=== PATIENT | female | born 1935 | race Caucasian/White ===

== ENCOUNTER 2019-05-09 19:02 | Emergency (ER) | payer MEDICARE, BC ==
[~2019-05-09] VITALS: Ht 165.1 cm; Wt 63.0 kg
[2019-05-09 19:10] VITALS: BP 137/38
--- NOTE | 2019-05-09 19:45 | NUR ---
son and [id number]-[id number]-pny at bedside. pt is comfortable at this time and asking when she can go back to [facility]. she has confusion/dementia at baseline per family
[2019-05-09] MEDS ORDERED: TETanus/Pertussis (Acell)/Diphther VAC/PF (Tdap-Adult) 0.5ml syringe IM ONE (20:40)
[2019-05-09] MEDS ORDERED: magnesium oxide 400mg tablet PO ONE (21:00)
== END 2019-05-09 21:26 | disposition home or self-care (01) ==
LOC: ER 19:03
DX: S51.812A Laceration without foreign body of left forearm, initial encounter (principal); I45.81 Long QT syndrome; F03.90 Unspecified dementia, unspecified severity, without behavioral disturbance, psychotic disturbance, mood disturbance, and anxiety; I48.91 Unspecified atrial fibrillation; I10 Essential (primary) hypertension; Z90.710 Acquired absence of both cervix and uterus; Z90.49 Acquired absence of other specified parts of digestive tract; W18.39XA Other fall on same level, initial encounter; Y93.89 Activity, other specified; Y92.89 Other specified places as the place of occurrence of the external cause; Y99.8 Other external cause status
CPT/HCPCS: 12002; 71045; 90471; 93005; 99283; 99284

== ENCOUNTER 2019-09-01 14:34 | Inpatient (IN) | payer MEDICARE, BC ==
[~2019-09-01] VITALS: Ht 160 cm; Wt 63.6 kg
--- NOTE | 2019-09-01 14:58 | NUR ---
BROUGHT IN FOR REPORT OF N/V AND IN TREAGE REPORT OF HR IN THE 30'S WAS FOUND BROUGHT BACK AND PALCED IN ROOM AND PACING PADS WERE PLACED ON PT BUT NOT TURNED ON AT THIS TIME
[2019-09-01 15:07] LABS: BASOPHILS % (AUTO) 0.2 % (0-1); EOSINOPHILS % (AUTO) 0.1 % (0-6); HEMATOCRIT 39.4 % (35.0-45.0); HEMOGLOBIN 13.4 g/dl (12.0-16.0); LYMPHOCYTES # (AUTO) 0.5 X10'3 (1.1-4.8); LYMPHOCYTES % (AUTO) 4.6 % (21-51); MEAN CORPUSCULAR HEMOGLOBIN 30.9 PG (27.0-31.0); MEAN CORPUSCULAR HGB CONC 34.1 g/dL (33.0-36.5); MEAN CORPUSCULAR VOLUME 90.5 FL (78-98); MEAN PLATELET VOLUME 6.4 FL (7.4-10.4); MONOCYTES # (AUTO) 0.5 X10'3 (0-0.9); MONOCYTES % (AUTO) 4.4 % (2-12); NEUTROPHILS # (AUTO) 10.7 X10'3 (1.8-7.7); NEUTROPHILS % (AUTO) 90.7 % (42-75); PLATELET COUNT 242 X10'3 (140-440); RED BLOOD COUNT 4.35 X10'6 (4.20-5.60); RED CELL DISTRIBUTION WIDTH 13.6 % (11.5-14.5); WHITE BLOOD COUNT 11.8 X10'3 (4.5-11.0)
[2019-09-01 15:39] LABS: CLARITY,URINE CLEAR (Clear); COLOR,URINE STRAW (Yellow); GLUCOSE, URINE NEGATIVE (Neg); KETONES,URINE NEGATIVE (Neg); LEUKOCYTE ESTERASE ,URINE NEGATIVE (Neg); NITRITES, URINE NEGATIVE (Neg); OCCULT BLOOD,URINE TRACE-INTACT (Neg); PROTEIN,URINE NEGATIVE (Neg); UROBILINOGEN,URINE 0.2 E.U/dL (0.2-1.0)
[2019-09-01 15:39] LABS: ALANINE AMINOTRANSFERASE 16 U/L (12-78); ALBUMIN 4.1 G/DL (3.4-5.0); ALBUMIN/GLOBULIN RATIO 1.1 (1.1-1.5); ALKALINE PHOSPHATASE 61 IU/L (46-116); ANION GAP 11 (8-16); ASPARTATE AMINO TRANSFERASE 19 U/L (10-37); BILIRUBIN,TOTAL 0.5 MG/DL (0.1-1.0); BLOOD UREA NITROGEN 16 MG/DL (7-18); BUN/CREATININE RATIO 21.6 (6.6-38.0); CHLORIDE 97 MMOL/L (99-107); CREATININE 0.74 MG/DL (0.40-0.90); GLUCOSE 176 MG/DL (70-104); MAGNESIUM 1.8 MG/DL (1.5-2.4); SODIUM 134 MMOL/L (135-145); TOTAL CARBON DIOXIDE 26.4 MMOL/L (24-32); TOTAL PROTEIN 7.8 G/DL (6.4-8.2); eGFR 75 ML/MIN
[2019-09-01 15:42] LABS: UA COLLECTION TYPE STRAIGHT CATH
[2019-09-01 15:43] LABS: POTASSIUM 2.8 MMOL/L (3.5-5.1)
[2019-09-01 15:45] LABS: BACTERIA,URINE NONE SEEN /HPF (Neg); HYALINE CASTS 0-3 /LPF (NEGATIVE); MUCUS STRANDS NONE SEEN /LPF (Neg); RBC,URINE 0-2 /HPF (0-2); SQUAMOUS EPITHELIAL CELL,UR FEW /LPF (FEW); WBC,URINE 0-4 /HPF (0-4)
[2019-09-01] MEDS ORDERED: potassium Cl 10 mEq/100mL bag IV ONE ×2 (15:50→16:20)
[2019-09-01] MEDS ORDERED: normal saline 1000ML IV soln IVB ONE (15:55)
[2019-09-01] MEDS ORDERED: potassium Cl 20 mEq SR tablet PO ONE (16:20)
[2019-09-01] MEDS ORDERED: enoxaparin 100mg/ml syringe SUBCUT ONE (16:20)
[2019-09-01] MEDS ORDERED: normal saline 1000ml 1,000 ML IV SCH (16:23)
[2019-09-01] MEDS ORDERED: potassium CL 10mEq/100ml bag 100 ML IV PRN ×2 (16:25)
[2019-09-01] MEDS ORDERED: mag hydrox/Alum hydrox/simeth 30ml oral suspension PO PRN (16:25)
[2019-09-01] MEDS ORDERED: magnesium hydroxide 30ml (MOM) UD suspension PO PRN ×2 (16:25→21:05)
[2019-09-01] MEDS ORDERED: ondansetron/PF 4mg/2ml inj IV PRN (16:25)
[2019-09-01] MEDS ORDERED: acetaminophen 325mg tablet PO PRN ×2 (16:25)
[2019-09-01] MEDS ORDERED: magnesium Cl slow-release 64mg tablet PO PRN (16:25)
[2019-09-01] MEDS ORDERED: magnesium 2GM in 50ml NS 50 ML IV PRN (16:25)
[2019-09-01] MEDS ORDERED: diphenhydrAMINE 50 mg/ml inj IV PRN (16:25)
[2019-09-01] MEDS ORDERED: magnesium 4gm in 100ml NS 100 ML IV PRN (16:25)
[2019-09-01] MEDS ORDERED: metoclopramide 5 mg/ml inj IV PRN (16:25)
[2019-09-01] MEDS ORDERED: HYDROcodone/acetaminophen 5mg/325mg tablet PO PRN (16:25)
[2019-09-01] MEDS ORDERED: diphenhydrAMINE 25mg capsule PO PRN (16:25)
[2019-09-01] MEDS ORDERED: potassium Cl 20 mEq SR tablet PO PRN ×2 (16:25)
[2019-09-01] MEDS ORDERED: morphine 2 MG/ML inj. syringe IV PRN ×2 (16:25)
[2019-09-01] MEDS ORDERED: HYDROcodone/acetaminophen 10/325mg tab PO PRN (16:25)
[2019-09-01] MEDS: K and/or MAG REPLACEMENT MC SCH (16:25)
[2019-09-01 17:10] LABS: HEMOGLOBIN A1C 5.5 % (4.5-6.2)
--- NOTE | 2019-09-01 17:30 | NUR ---
Patient in room U 3026. I have received report from Augusto MENDOZA and had the opportunity to ask questions and assume patient care. Awaiting patient arrival to U 3026B.
--- NOTE | 2019-09-01 17:55 | NUR ---
Patient arrived to U 3026B via gurney and accompanied to ED RN. Patient transferred to hospital bed. Telemetry monitoring initiated. Patient oriented to room and to call light. Patient vital signs: T 97.4, HR 64, RR: 20, 02 92% on room air, BP 108/45. Pain 0/10. All immediate needs met at this time.
--- NOTE | 2019-09-01 18:30 | NUR ---
Called Dr. Canela to report 3 hour Troponin results - 10.5
--- NOTE | 2019-09-01 18:32 | NUR ---
Patient in room PCU 3026. I have received report from Juliana RN and Kathleen RN and had the opportunity to ask questions and assume patient care. Checked on patient, she is resting with her granddaughter at bedside. Will continue to monitor closely.
[2019-09-01 19:01] VITALS: BP 108/45
[2019-09-01] MEDS ORDERED: HYDR25TA4 PO (19:02)
[2019-09-01] MEDS ORDERED: ASPI81TA47 PO (19:02)
[2019-09-01] MEDS ORDERED: NA P133E RC (19:02)
[2019-09-01] MEDS ORDERED: FLEC100T3 PO (19:02)
[2019-09-01] MEDS ORDERED: LORA-268 PO (19:02)
[2019-09-01] MEDS ORDERED: ACET-75 PO (19:02)
[2019-09-01] MEDS ORDERED: FURO20TA4 PO (19:02)
[2019-09-01] MEDS ORDERED: MAGN400O6 PO (19:02)
[2019-09-01] MEDS ORDERED: DONE10TA44 PO (19:02)
[2019-09-01] MEDS ORDERED: QUET25TA34 PO ×2 (19:02)
[2019-09-01] MEDS ORDERED: LOSA50TA64 PO (19:02)
[2019-09-01] MEDS ORDERED: DILT120C91 PO (19:02)
[2019-09-01] MEDS ORDERED: SERT100T10 PO (19:02)
[2019-09-01] MEDS ORDERED: MONT10TA24 PO (19:02)
[2019-09-01] MEDS ORDERED: CIPR250T4 PO (19:02)
[2019-09-01] MEDS ORDERED: BISA10SU60 RC (19:02)
[2019-09-01] MEDS ORDERED: CETI10CA PO (19:02)
[2019-09-01] MEDS ORDERED: enoxaparin 100mg/ml syringe SUBCUT SCH (20:00)
[2019-09-01] MEDS: temazepam 15mg capsule PO PRN (20:24)
[2019-09-01] MEDS ORDERED: non-formulary drug (Na Phos,M-B/Na Phos,Di-Ba (Enema) 1 ENEMAS) RC PRN (21:05)
[2019-09-01] MEDS ORDERED: LORazepam 0.5 MG tablet PO PRN (21:05)
[2019-09-01] MEDS ORDERED: bisacodyl 10mg suppository rectal RC PRN (21:05)
[2019-09-01] MEDS ORDERED: non-formulary drug (Acetaminophen 1 TAB) PO PRN (21:10)
--- NOTE | 2019-09-01 21:30 | NUR ---
Called Dr. Canela to report 6 hour troponin - 12.02
[2019-09-01 22:00] VITALS: BP 100/44
[2019-09-02 02:00] VITALS: BP 103/49
[2019-09-02 03:15] LABS: BASOPHILS % (AUTO) 0.3 % (0-1); EOSINOPHILS # (AUTO) 0.1 X10'3 (0-0.9); EOSINOPHILS % (AUTO) 0.7 % (0-6); HEMATOCRIT 36.7 % (35.0-45.0); HEMOGLOBIN 12.5 g/dl (12.0-16.0); LYMPHOCYTES # (AUTO) 1.5 X10'3 (1.1-4.8); LYMPHOCYTES % (AUTO) 18.5 % (21-51); MEAN CORPUSCULAR HEMOGLOBIN 30.9 PG (27.0-31.0); MEAN PLATELET VOLUME 6.8 FL (7.4-10.4); MONOCYTES # (AUTO) 0.7 X10'3 (0-0.9); MONOCYTES % (AUTO) 9.1 % (2-12); NEUTROPHILS # (AUTO) 5.9 X10'3 (1.8-7.7); NEUTROPHILS % (AUTO) 71.4 % (42-75); PLATELET COUNT 210 X10'3 (140-440); RED BLOOD COUNT 4.03 X10'6 (4.20-5.60); RED CELL DISTRIBUTION WIDTH 13.7 % (11.5-14.5); WHITE BLOOD COUNT 8.2 X10'3 (4.5-11.0)
[2019-09-02 03:25] LABS: ALANINE AMINOTRANSFERASE 16 U/L (12-78); ALBUMIN 3.3 G/DL (3.4-5.0); ALBUMIN/GLOBULIN RATIO 1.1 (1.1-1.5); ALKALINE PHOSPHATASE 50 IU/L (46-116); ANION GAP 10 (8-16); ASPARTATE AMINO TRANSFERASE 34 U/L (10-37); BILIRUBIN,TOTAL 0.6 MG/DL (0.1-1.0); BLOOD UREA NITROGEN 13 MG/DL (7-18); BUN/CREATININE RATIO 21.3 (6.6-38.0); CALCIUM 8.4 MG/DL (8.5-10.1); CHLORIDE 102 MMOL/L (99-107); CREATININE 0.61 MG/DL (0.40-0.90); GLUCOSE 87 MG/DL (70-104); POTASSIUM 3.6 MMOL/L (3.5-5.1); SODIUM 138 MMOL/L (135-145); TOTAL CARBON DIOXIDE 26.2 MMOL/L (24-32); TOTAL PROTEIN 6.4 G/DL (6.4-8.2); eGFR > 90 ML/MIN
[2019-09-02 03:28] LABS: CHOL/HDL RATIO 3.1 (0.00-4.99); CHOLESTEROL 153 MG/DL (0-200); HDL CHOLESTEROL 50 MG/DL (35-60); LDL CHOLESTEROL 96 MG/DL (50-100); MAGNESIUM 1.7 MG/DL (1.5-2.4); PHOSPHORUS 2.6 MG/DL (2.3-4.5); TRIGLYCERIDES 65 MG/DL (20-135)
--- NOTE | 2019-09-02 06:25 | NUR ---
Problems reprioritized. Patient report given, questions answered & plan of care reviewed with aLine MENDOZA.
[2019-09-02 06:30] VITALS: BP_SYST 89; BP_SYST 95; BP_DIAS 32; BP_DIAS 37
--- NOTE | 2019-09-02 06:32 | NUR ---
Patient in room PCU 3026. I have received report from KELLY Delgadillo and had the opportunity to ask questions and assume patient care.
[2019-09-02] MEDS: metoprolol succinate 25mg (24-HOUR) SR. Tablet PO SCH (08:00)
[2019-09-02] MEDS: furosemide 20MG tablet PO SCH (08:00)
[2019-09-02] MEDS: losartan 50mg tablet PO SCH (08:00)
[2019-09-02] MEDS ORDERED: diltiazem CD 120mg capsule (once-daily) PO SCH (08:00)
[2019-09-02] MEDS ORDERED: HYDROchlorothiazide 25mg tablet PO SCH (08:00)
[2019-09-02] MEDS: K and/or MAG REPLACEMENT MC SCH (08:00)
[2019-09-02] MEDS: donepezil 5mg tablet PO SCH (08:29)
[2019-09-02] MEDS: QUEtiapine 25mg tablet PO SCH (08:29)
[2019-09-02] MEDS: sertraline 50mg tablet PO SCH (08:29)
[2019-09-02] MEDS: montelukast 10mg tablet PO SCH (08:29)
[2019-09-02] MEDS: enoxaparin 60mg/0.6ml syringe SUBCUT SCH ×2 (08:30→21:47)
[2019-09-02] MEDS: aspirin 81mg tablet.DR PO SCH (08:30)
[2019-09-02] MEDS: cetirizine 10mg tablet PO SCH (08:30)
[2019-09-02] MEDS: flecainide 50mg tablet PO SCH ×2 (08:30→21:46)
[2019-09-02 11:00] VITALS: BP 96/43
--- NOTE | 2019-09-02 14:15 | NUR ---
Pt becoming agitated D/T medical biller coder. Pt has been in sinus rhythm, Dr Hurt paged to request DC of monitor. Response pending, will continue to monitor. Sitter remains at bedside.
[2019-09-02 15:46] VITALS: BP 109/52
--- NOTE | 2019-09-02 18:15 | NUR ---
Patient in room PCU 3026. I have received report from Laine MENDOZA and had the opportunity to ask questions and assume patient care. Patient is sleeping with sitter at bedside. Will continue to monitor.
--- NOTE | 2019-09-02 18:24 | NUR ---
Problems reprioritized. Patient report given, questions answered & plan of care reviewed with KELLY Delgadillo.
[2019-09-02 19:00] VITALS: BP 127/64
[2019-09-02] MEDS ORDERED: QUEtiapine 25mg tablet PO SCH (21:00)
[2019-09-02] MEDS: temazepam 15mg capsule PO PRN (21:46)
[2019-09-02 23:00] VITALS: BP 107/45
[2019-09-03 03:00] VITALS: BP 118/56
[2019-09-03 05:29] LABS: BASOPHILS % (AUTO) 0.3 % (0-1); EOSINOPHILS # (AUTO) 0.1 X10'3 (0-0.9); HEMATOCRIT 37.7 % (35.0-45.0); HEMOGLOBIN 13.1 g/dl (12.0-16.0); LYMPHOCYTES # (AUTO) 1.1 X10'3 (1.1-4.8); MEAN CORPUSCULAR HEMOGLOBIN 31.3 PG (27.0-31.0); MEAN CORPUSCULAR HGB CONC 34.7 g/dL (33.0-36.5); MEAN CORPUSCULAR VOLUME 90.1 FL (78-98); MEAN PLATELET VOLUME 6.8 FL (7.4-10.4); MONOCYTES # (AUTO) 0.8 X10'3 (0-0.9); MONOCYTES % (AUTO) 8.9 % (2-12); NEUTROPHILS # (AUTO) 6.7 X10'3 (1.8-7.7); NEUTROPHILS % (AUTO) 76.8 % (42-75); PLATELET COUNT 204 X10'3 (140-440); RED BLOOD COUNT 4.18 X10'6 (4.20-5.60); RED CELL DISTRIBUTION WIDTH 13.6 % (11.5-14.5); WHITE BLOOD COUNT 8.8 X10'3 (4.5-11.0)
--- NOTE | 2019-09-03 06:12 | NUR ---
Problems reprioritized. Patient report given, questions answered & plan of care reviewed with Doris MENDOZA.
[2019-09-03 06:21] LABS: ALANINE AMINOTRANSFERASE 13 U/L (12-78); ALBUMIN 3.2 G/DL (3.4-5.0); ALKALINE PHOSPHATASE 50 IU/L (46-116); ANION GAP 11 (8-16); ASPARTATE AMINO TRANSFERASE 28 U/L (10-37); BILIRUBIN,TOTAL 0.5 MG/DL (0.1-1.0); BLOOD UREA NITROGEN 17 MG/DL (7-18); BUN/CREATININE RATIO 26.6 (6.6-38.0); CALCIUM 8.3 MG/DL (8.5-10.1); CHLORIDE 102 MMOL/L (99-107); CREATININE 0.64 MG/DL (0.40-0.90); GLUCOSE 98 MG/DL (70-104); MAGNESIUM 1.6 MG/DL (1.5-2.4); PHOSPHORUS 2.8 MG/DL (2.3-4.5); POTASSIUM 3.7 MMOL/L (3.5-5.1); SODIUM 134 MMOL/L (135-145); TOTAL CARBON DIOXIDE 21.3 MMOL/L (24-32); TOTAL PROTEIN 6.5 G/DL (6.4-8.2); eGFR 89 ML/MIN
[2019-09-03 06:47] VITALS: BP 132/67
--- NOTE | 2019-09-03 06:56 | NUR ---
Patient in room PCU 3026. I have received report from KELLY Delgadillo and had the opportunity to ask questions and assume patient care. Patient currently resting in bed, bed locked and low, call light in reach, no acute distress but confused about where she is and asking where her clothes are. Patient concerns addressed and patient calmed. Will continue to monitor.
[2019-09-03] MEDS: donepezil 5mg tablet PO SCH (07:48)
[2019-09-03] MEDS: montelukast 10mg tablet PO SCH (07:48)
[2019-09-03] MEDS: losartan 50mg tablet PO SCH (07:48)
[2019-09-03] MEDS: sertraline 50mg tablet PO SCH (07:48)
[2019-09-03] MEDS: QUEtiapine 25mg tablet PO SCH (07:48)
[2019-09-03] MEDS: aspirin 81mg tablet.DR PO SCH (07:48)
[2019-09-03] MEDS: cetirizine 10mg tablet PO SCH (07:49)
[2019-09-03] MEDS: flecainide 50mg tablet PO SCH (07:49)
[2019-09-03] MEDS: enoxaparin 60mg/0.6ml syringe SUBCUT SCH (07:49)
[2019-09-03] MEDS: furosemide 20MG tablet PO SCH (07:49)
[2019-09-03] MEDS: metoprolol succinate 25mg (24-HOUR) SR. Tablet PO SCH (07:49)
[2019-09-03] MEDS: K and/or MAG REPLACEMENT MC SCH (08:00)
[2019-09-03] MEDS ORDERED: METO-395 PO (09:23)
[2019-09-03 11:01] VITALS: BP 122/59
--- NOTE | 2019-09-03 12:19 | NUR ---
Received orders for patient discharge back to the [facility]. Patient's granddaughter went to get clothing and a vehicle to transport patient. IV removed, catheter tip intact, hemostasis acheived, wristbands removed. Patient [facility], transported to lobby by [facility], stable at time of discharge.
== END 2019-09-03 12:15 | disposition home health service (06) | DRG 281 ==
LOC: ER 14:35 → ED HOLD 16:56 → PCU 3S 17:26
PROVIDERS: ADMIT Family Medicine; ATTEND Family Medicine
DX: I21.4 Non-ST elevation (NSTEMI) myocardial infarction (principal); F03.91 Unspecified dementia, unspecified severity, with behavioral disturbance; E87.6 Hypokalemia; F32.9 Major depressive disorder, single episode, unspecified; F41.9 Anxiety disorder, unspecified; I11.0 Hypertensive heart disease with heart failure; I48.0 Paroxysmal atrial fibrillation; I50.9 Heart failure, unspecified; Z60.2 Problems related to living alone; Z66 Do not resuscitate; Z87.891 Personal history of nicotine dependence; Z88.8 Allergy status to other drugs, medicaments and biological substances; Z79.899 Other long term (current) drug therapy; Z90.710 Acquired absence of both cervix and uterus; Z91.81 History of falling; Z79.82 Long term (current) use of aspirin; Z90.49 Acquired absence of other specified parts of digestive tract
CPT/HCPCS: 36415; 71045; 80053; 80061; 81001; 83036; 83735; 83880; 84100; 84484; 85025; 87081; 93005; 93306; 96365; 96375; 99285; G0378; J1650; J3480; J7030

== ENCOUNTER 2019-09-04 14:13 | Emergency (ER) | payer MEDICARE, BC ==
[~2019-09-04] VITALS: Ht 157.5 cm; Wt 61.4 kg
[~2019-09-04 14:13] MED LIST: ACET-75 PO; ASPI81TA47 PO; BISA10SU60 RC; CETI10CA PO; DONE10TA44 PO; FLEC100T3 PO; HYDR25TA4 PO; LORA-268 PO; LOSA50TA64 PO; MAGN400O6 PO; METO-395 PO; MONT10TA24 PO; NA P133E RC; QUET25TA34 PO; SERT100T10 PO
[2019-09-04] MEDS ORDERED: normal saline 1000ML IV soln IVB ONE (14:50)
[2019-09-04 15:10] LABS: BASOPHILS % (AUTO) 0.6 % (0-1); EOSINOPHILS # (AUTO) 0.2 X10'3 (0-0.9); EOSINOPHILS % (AUTO) 2.6 % (0-6); HEMATOCRIT 34.2 % (35.0-45.0); HEMOGLOBIN 11.8 g/dl (12.0-16.0); LYMPHOCYTES # (AUTO) 1.6 X10'3 (1.1-4.8); LYMPHOCYTES % (AUTO) 24.4 % (21-51); MEAN CORPUSCULAR HEMOGLOBIN 31.3 PG (27.0-31.0); MEAN CORPUSCULAR HGB CONC 34.5 g/dL (33.0-36.5); MEAN CORPUSCULAR VOLUME 90.6 FL (78-98); MEAN PLATELET VOLUME 6.7 FL (7.4-10.4); MONOCYTES # (AUTO) 0.8 X10'3 (0-0.9); MONOCYTES % (AUTO) 11.8 % (2-12); NEUTROPHILS # (AUTO) 3.9 X10'3 (1.8-7.7); NEUTROPHILS % (AUTO) 60.6 % (42-75); PLATELET COUNT 213 X10'3 (140-440); RED BLOOD COUNT 3.77 X10'6 (4.20-5.60); RED CELL DISTRIBUTION WIDTH 13.8 % (11.5-14.5); WHITE BLOOD COUNT 6.4 X10'3 (4.5-11.0)
[2019-09-04 15:24] LABS: PARTIAL THROMBOPLASTIN TIME 26 SECONDS (22-32)
[2019-09-04 15:26] LABS: ALANINE AMINOTRANSFERASE 19 U/L (12-78); ALBUMIN 3.2 G/DL (3.4-5.0); ALKALINE PHOSPHATASE 50 IU/L (46-116); ANION GAP 4 (8-16); ASPARTATE AMINO TRANSFERASE 21 U/L (10-37); BILIRUBIN,TOTAL 0.3 MG/DL (0.1-1.0); BLOOD UREA NITROGEN 16 MG/DL (7-18); BUN/CREATININE RATIO 24.6 (6.6-38.0); CALCIUM 8.5 MG/DL (8.5-10.1); CHLORIDE 100 MMOL/L (99-107); CREATININE 0.65 MG/DL (0.40-0.90); GLUCOSE 110 MG/DL (70-104); POTASSIUM 3.6 MMOL/L (3.5-5.1); SODIUM 133 MMOL/L (135-145); TOTAL CARBON DIOXIDE 28.7 MMOL/L (24-32); TOTAL PROTEIN 6.4 G/DL (6.4-8.2); eGFR 87 ML/MIN
[2019-09-04 15:34] LABS: MAGNESIUM 1.7 MG/DL (1.5-2.4)
[2019-09-04 17:06] VITALS: BP 110/65
== END 2019-09-04 17:12 | disposition home or self-care (01) ==
LOC: ER 14:13
DX: I95.9 Hypotension, unspecified (principal); I11.0 Hypertensive heart disease with heart failure; I50.9 Heart failure, unspecified; I48.91 Unspecified atrial fibrillation; F03.90 Unspecified dementia, unspecified severity, without behavioral disturbance, psychotic disturbance, mood disturbance, and anxiety; Z90.49 Acquired absence of other specified parts of digestive tract; Z90.710 Acquired absence of both cervix and uterus; Z60.2 Problems related to living alone; Z88.8 Allergy status to other drugs, medicaments and biological substances; Z79.82 Long term (current) use of aspirin; Z79.899 Other long term (current) drug therapy
CPT/HCPCS: 36415; 71045; 80053; 83735; 83880; 84484; 85025; 85610; 85730; 93005; 99284; J7040

== ENCOUNTER 2019-09-22 08:11 | Emergency (ER) | payer MEDICARE, BC ==
[~2019-09-22] VITALS: Ht 160 cm; Wt 59.1 kg
[2019-09-22] MEDS ORDERED: aspirin 81mg tab.chew PO ONE (08:20)
[2019-09-22] MEDS ORDERED: furosemide 40mg/4ml inj IV ONE (08:20)
[2019-09-22 08:55] LABS: GLUCOSE 155 MG/DL (70-104); SODIUM 127 MMOL/L (135-145)
[2019-09-22 08:56] LABS: ALANINE AMINOTRANSFERASE 21 U/L (12-78); ALBUMIN 3.5 G/DL (3.4-5.0); ALBUMIN/GLOBULIN RATIO 1.2 (1.1-1.5); ALKALINE PHOSPHATASE 59 IU/L (46-116); ANION GAP 8 (8-16); ASPARTATE AMINO TRANSFERASE 18 U/L (10-37); BILIRUBIN,TOTAL 0.6 MG/DL (0.1-1.0); BLOOD UREA NITROGEN 11 MG/DL (7-18); BUN/CREATININE RATIO 17.7 (6.6-38.0); CALCIUM 8.3 MG/DL (8.5-10.1); CHLORIDE 94 MMOL/L (99-107); CREATININE 0.62 MG/DL (0.40-0.90); POTASSIUM 3.5 MMOL/L (3.5-5.1); TOTAL PROTEIN 6.5 G/DL (6.4-8.2); eGFR > 90 ML/MIN
[2019-09-22 08:57] LABS: BASOPHILS % (AUTO) 0.4 % (0-1); EOSINOPHILS # (AUTO) 0.1 X10'3 (0-0.9); EOSINOPHILS % (AUTO) 0.8 % (0-6); HEMATOCRIT 37.4 % (35.0-45.0); HEMOGLOBIN 12.9 g/dl (12.0-16.0); LYMPHOCYTES # (AUTO) 0.7 X10'3 (1.1-4.8); LYMPHOCYTES % (AUTO) 9.8 % (21-51); MEAN CORPUSCULAR HGB CONC 34.4 g/dL (33.0-36.5); MEAN CORPUSCULAR VOLUME 89.9 FL (78-98); MEAN PLATELET VOLUME 6.9 FL (7.4-10.4); MONOCYTES # (AUTO) 0.5 X10'3 (0-0.9); MONOCYTES % (AUTO) 6.5 % (2-12); NEUTROPHILS # (AUTO) 6.1 X10'3 (1.8-7.7); NEUTROPHILS % (AUTO) 82.5 % (42-75); PLATELET COUNT 266 X10'3 (140-440); RED BLOOD COUNT 4.16 X10'6 (4.20-5.60); RED CELL DISTRIBUTION WIDTH 13.7 % (11.5-14.5); WHITE BLOOD COUNT 7.4 X10'3 (4.5-11.0)
[2019-09-22 09:02] LABS: MAGNESIUM 1.7 MG/DL (1.5-2.4)
[2019-09-22] MEDS ORDERED: enoxaparin 100mg/ml syringe SUBCUT ONE (09:10)
[2019-09-22] MEDS ORDERED: LORazepam 1 MG tablet PO ONE (09:15)
--- NOTE | 2019-09-22 09:30 | NUR ---
report given to abbey MENDOZA.
[2019-09-22 09:50] LABS: CLARITY,URINE CLEAR (Clear); COLOR,URINE STRAW (Yellow); GLUCOSE, URINE NEGATIVE (Neg); KETONES,URINE NEGATIVE (Neg); LEUKOCYTE ESTERASE ,URINE NEGATIVE (Neg); NITRITES, URINE NEGATIVE (Neg); OCCULT BLOOD,URINE TRACE-LYSED (Neg); PROTEIN,URINE NEGATIVE (Neg); UROBILINOGEN,URINE 0.2 E.U/dL (0.2-1.0)
[2019-09-22 09:51] LABS: UA COLLECTION TYPE STRAIGHT CATH
[2019-09-22 09:57] LABS: BACTERIA,URINE NONE SEEN /HPF (Neg); MUCUS STRANDS NONE SEEN /LPF (Neg); RBC,URINE 0-2 /HPF (0-2); SQUAMOUS EPITHELIAL CELL,UR NONE SEEN /LPF (FEW); WBC,URINE 0-4 /HPF (0-4)
--- NOTE | 2019-09-22 10:30 | NUR ---
VERBAL ORDER FROM JONAS RODRIGUEZ TO JOSE GALEANO
--- NOTE | 2019-09-22 10:34 | NUR ---
BOTH KIKE CLIP COATER AND DR GONZALEZ AT BEDSIDE. I HAD A LONG DISCUSSION WITH GRANDDAUGHTER REGARDING THE DIFFERENCE BETWEEN DNR AND HOSPICE/ AND PALLIATIVE CARE
--- NOTE | 2019-09-22 11:47 | NUR ---
SPOKE TO KIKE SCALE MANAGER REGARDING HOSPICE FOR PATIENT ON DISCHARGE. UPDATED KELLY Whatever TECH FROM [facility] [phone] REGARDING PATIENT RETURNING WITH [facility] URIN[facility] CATHETER AND ON HOSPICE. FC CATHETER IS OK PER KELLY. [facility] IS ON THEIR WAY
--- NOTE | 2019-09-22 15:05 | NUR ---
SPOKE WITH KELLY MENDES [facility]. DIANE MENDOZA WILL BE HERE SHORTLY
--- NOTE | 2019-09-22 15:21 | NUR ---
SPOKE WITH JOSE A BISQUE GRADER OF [facility] AT [phone]
--- NOTE | 2019-09-22 15:22 | NUR ---
DIANE MENDOZA FROM [facility] HERE AT BEDSIDE SPEAKING WITH FAMILY
--- NOTE | 2019-09-22 15:22 | NUR ---
BSC: LOOSE BROWN STOOL
[2019-09-22 15:58] VITALS: BP 164/87
--- NOTE | 2019-09-22 16:45 | NUR ---
MULTIPLE DISCUSSIONS WITH FAMILY INCLUDING TWO GRANDDAUGHTERS AT BEDSIDE REGARDING DNR, HOSPICE AND PALLIATIVE CARE. SON NATALY MARTIN FOR HEALTHCARE AND GRANDDAUGHTERS AGREE TO SEND THE PATIENT BACK TO THE [facility] ON HOSPICE PROVIDED BY [facility].
--- NOTE | 2019-09-22 17:20 | NUR ---
1700 ECHO COMPLETED, PIV DISCONTINUED, [facility] CATHETER DISCONTINUED PER VERBAL ORDER FROM JONAS RODRIGUEZ. PATIENT TOLERATED WELL, ASSISTED TO [facility]. MAURICE HELPED CLOTHE THE PATIENT. APRIA IS HERE WITH PATIENT'S OXYGEN. PATIENT CLOTHED AND DISCHARGED HOME TO THE [facility] VIA WHEELCHAIR WITH GA. PATIENT SMILING ON HER WAY OUT.
== END 2019-09-22 17:20 | disposition home or self-care (01) ==
LOC: ER 08:11
DX: J96.01 Acute respiratory failure with hypoxia (principal); I48.91 Unspecified atrial fibrillation; R79.89 Other specified abnormal findings of blood chemistry; R41.0 Disorientation, unspecified; I11.0 Hypertensive heart disease with heart failure; I50.9 Heart failure, unspecified; Z90.49 Acquired absence of other specified parts of digestive tract; Z90.710 Acquired absence of both cervix and uterus; Z88.8 Allergy status to other drugs, medicaments and biological substances; Z79.82 Long term (current) use of aspirin; Z79.899 Other long term (current) drug therapy
CPT/HCPCS: 36415; 71045; 80053; 81001; 83735; 83880; 84484; 85025; 85610; 93005; 93308; 96372; 96374; 99291; J1940; P9612; J1650